=== PATIENT | male | born 1965 | race Caucasian/White ===

== ENCOUNTER 2021-01-21 12:57 | Emergency (ER) | payer BC ==
--- NOTE | 2021-01-21 13:52 | EDM.PDOC ---
ED HPI GENERAL MEDICAL PROBLEM - General Chief Complaint: Syncope Stated Complaint: abnormal labs, syncope Time Seen by Provider: 01/21/21 13:00 Source of Information: Reports: Patient History Limitations: Reports: No Limitations - History of Present Illness INITIAL COMMENTS - FREE TEXT/NARRATIVE: Patient comes to ER after being referred by clinic. He was seen at the clinic this morning after experiencing an episode of unresponsiveness last night. Has problems with chronic muscle cramping. Was having cramps in the thighs and told his that he felt woozy around 10pm last night. She had him sit in a chair. says patient turned flowers and became very diaphoretic. He then went limp in the chair and was unresponsive for about 15min. No obvious seizure activity per . called 911. She was instructed to take patient's pulse. Pulse was not fast per , but did did not measure actual rate. Was regular. During unresponsive episode no signs shortness of breath noted. No other obvious acute changes. When patient started to respond he did so slowly. EMS arrived and evaluated him. EMS crew felt his behavior suggested post-ictal pattern. Vital signs unremarkable per EMS. EKG performed and also unremarkable. Patient refused transfer to ED. This morning patient presented to clinic. Had labs/EKG. Head CT also as he had history of hitting top of head on cabinets in December. No LOC at that time but felt he gave himself mild concussion as he had some nausea afterwards. Labs unremarkable except for minimally elevated Troponin. He was referred to the ER due to Troponin elevation. Patient feels fine now other than feeling a bit tired/mild brain fog. Denies any chest pain throughout the night/today. Strong cardiac history in family with multiple members having AL/stents/CABG A - Related Data Allergies Allergy/AdvReac Type Severity Reaction Status Date / Time No Known Allergies Allergy Verified 01/21/21 13:35 Home Meds: Home Meds Methylphenidate HCl [Methylphenidate HCl ER] 20 mg PO BID 01/21/21 [History] Non-Formulary Medication [NF Drug] 1 tab PO DAILY 01/21/21 [History] Jackson-3/DHA/Epa/Fish Oil [Fish Oil 1,400 MG Softgel] 1 each PO BEDTIME 01/21/21 [History] Potassium Gluconate [Potassium] 3 tab PO DAILY 01/21/21 [History] Psyllium Husk [Metamucil] 1 tbsp PO TID 01/21/21 [History] buPROPion HCL [Bupropion HCl Sr] 150 mg PO DAILY 01/21/21 [History] Past Medical History Cardiovascular History: Reports: High Cholesterol Musculoskeletal History: Reports: Other (See Below) (muscle cramps) Psychiatric History: Reports: ADHD, Anxiety, Depression Endocrine/Metabolic History: Reports: Other (See Below) (Low Testosterone) Social & Family History - Family History Cardiac: Reports: Bypass, CAD, High Cholesterol, Hypertension, AL, Stent Oncologic: Reports: Other (See Below) (multiple members with various cancer diagnoses) ED ROS GENERAL - Review of Systems Review Of Systems: Comprehensive ROS is negative, except as noted in HPI. ED EXAM, GENERAL - Physical Exam Exam: See Below Exam Limited By: No Limitations General Appearance: Alert, WD/WN, No Apparent Distress Eye Exam: Bilateral Eye: EOMI, PERRL Ears: Normal External Exam, Normal Canal, Hearing Grossly Normal Nose: No: Nasal Deformity, Nasal Swelling, Nasal Drainage Throat/Mouth: Normal Lips, Normal Voice, No Airway Compromise Head: Atraumatic, Normocephalic Neck: Normal Inspection, Supple, Non-Tender, Full Range of Motion Respiratory/Chest: No Respiratory Distress, Lungs Clear, Normal Breath Sounds, No Accessory Muscle Use, Chest Non-Tender Cardiovascular: Regular Rate, Rhythm, No Edema, No Murmur GI/Abdominal: Normal Bowel Sounds, Soft, Non-Tender, No Distention (Male) Exam: Deferred Rectal (Males) Exam: Deferred Back Exam: No: CVA Tenderness (L), CVA Tenderness (R), Decreased Range of Motion, Muscle Spasm, Paraspinal Tenderness Extremities: Normal Inspection, Normal Range of Motion, Non-Tender, Normal Capillary Refill, Slow Capillary Refill Neurological: Alert, Oriented, CN II-XII Intact, Normal Cognition, Normal Gait, No Motor/Sensory Deficits Psychiatric: Normal Affect, Normal Mood Skin Exam: Warm, Dry, Intact, Normal Color Course - Vital Signs Last Recorded V/S: Last Vital Signs Temp 36.6 C 01/21/21 13:00 Pulse 68 01/21/21 15:50 Resp 15 01/21/21 15:50 BP 124/55 L 01/21/21 15:50 Pulse Ox 98 01/21/21 15:50 - Orders/Labs/Meds Labs: Laboratory Tests 01/21/21 01/21/21 01/21/21 Range/Units 10:55 10:55 14:30 D-Dimer, Quantitative < 100 (0-400) ng/mL Troponin I High Sens (<=76) ng/L NT-Pro-B Natriuret Pep 38 (0-125) pg/mL Specimen Type Urinvoid Urine Color Yellow Urine Appearance Clear Urine pH 5.5 (5.0-9.0) Ur Specific [place] 1.025 (1.005-1.030) Urine Protein Negative (NEGATIVE) mg/dL Urine Glucose (UA) Negative (NEGATIVE) mg/dL Urine Ketones Negative (NEGATIVE) mg/dL Urine Occult Blood Negative (NEGATIVE) Urine Nitrite Negative (NEGATIVE) Urine Bilirubin Negative (NEGATIVE) Urine Urobilinogen 0.2 (0.2-1.0) E.U./dL Ur Leukocyte Esterase Negative (NEGATIVE) Urine RBC 0-5 /HPF Urine WBC 0-5 /HPF Ur Epithelial Cells Rare /LPF Urine Bacteria Not seen (NONE TO FEW) /HPF Urine Mucus Many H (NEGATIVE) /LPF 01/21/21 Range/Units 15:10 D-Dimer, Quantitative (0-400) ng/mL Troponin I High Sens 78 H* (<=76) ng/L NT-Pro-B Natriuret Pep (0-125) pg/mL Specimen Type Urine Color Urine Appearance Urine pH (5.0-9.0) Ur Specific [place] (1.005-1.030) Urine Protein (NEGATIVE) mg/dL Urine Glucose (UA) (NEGATIVE) mg/dL Urine Ketones (NEGATIVE) mg/dL Urine Occult Blood (NEGATIVE) Urine Nitrite (NEGATIVE) Urine Bilirubin (NEGATIVE) Urine Urobilinogen (0.2-1.0) E.U./dL Ur Leukocyte Esterase (NEGATIVE) Urine RBC /HPF Urine WBC /HPF Ur Epithelial Cells /LPF Urine Bacteria (NONE TO FEW) /HPF Urine Mucus (NEGATIVE) /LPF - Re-Assessments/Exams Free Text/Narrative Re-Assessment/Exam: 01/21/21 14:18 Differential includes seizure vs arrhythmia/syncopal vs other cardiac episode. Troponin could be elevated due to ischemia from blockage or arrhythmia. Plan at this time is to observe in ER and obtain repeat EKG and Troponin at 1500. 01/21/21 16:17 Second Troponin 78. Upper normal is 76. Down from previous 86. Unremarkable stay. 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 Bradycardic with rate sometimes dipping to 50 while resting. Patient continues to feel well overall. Recommended overnight observation stay/telemetry but patient refuses. Will have him follow up at [facility] this week and look into arranging a cardiac stress test/EEG/consider Holter monitor. Patient agreeable with plan. Departure - Departure Time of Disposition: 16:21 Disposition: Home, Self-Care 01 Condition: Good Clinical Impression: Episode of unresponsiveness, Elevated troponin - Discharge Information *PRESCRIPTION DRUG MONITORING PROGRAM REVIEWED*: Not Applicable *COPY OF PRESCRIPTION DRUG MONITORING REPORT IN PATIENT SHANTAL: Not Applicable Referrals: Suzanna Rivas PA-C [Primary Care Provider] - Forms: ED Department Discharge Additional Instructions: Follow up tomorrow with Chantel at 1:30pm [facility]. Discuss arranging cardiac stress test, EEG, and possibly a Holter monitor (looks for arrhythmias). Follow up in ER if you have sudden acute significant problems/changes. Sepsis Event Note (ED) - Focused Exam Vital Signs: Vital Signs Temp Pulse Resp BP Pulse Ox 01/21/21 15:50 68 15 124/55 L 98 01/21/21 15:20 57 L 16 125/58 L 99 01/21/21 14:55 67 19 135/62 98 01/21/21 14:25 55 L 17 136/71 98 01/21/21 14:00 55 L 18 137/62 98 01/21/21 13:45 55 L 16 135/67 98 01/21/21 13:15 61 16 146/67 H 98 01/21/21 13:00 36.6 C 58 L 18 125/64 97
== END 2021-01-21 16:35 | disposition home or self-care (01) ==
LOC: LL.ED 12:57
DX: R40.4 Transient alteration of awareness (principal); R79.89 Other specified abnormal findings of blood chemistry; E78.00 Pure hypercholesterolemia, unspecified; Z79.899 Other long term (current) drug therapy
CPT/HCPCS: 36415; 81001; 83880; 84484; 85379; 99284; 99285-25

== ENCOUNTER 2021-01-21 21:26 | Observation (INO) | payer BC ==
[2021-01-21] MEDS ORDERED: Sodium Chloride 0.9% 10 ML Syringe FLUSH PRN (21:32)
--- NOTE | 2021-01-21 22:23 | EDM.PDOC ---
ED HPI GENERAL MEDICAL PROBLEM - General Chief Complaint: Chest Pain Stated Complaint: chest pain Time Seen by Provider: 01/21/21 21:54 Source of Information: Reports: Patient History Limitations: Reports: No Limitations - History of Present Illness INITIAL COMMENTS - FREE TEXT/NARRATIVE: Patient returns to ER after being seen earlier for an unresponsive episode and minimally elevated troponin. He declined observation admission at that time. Has changed his mind after having approximately 5-6 very brief sharp pains in epigastric and left chest area. Locations varied. No other accompanying symptoms. No triggers. Otherwise feels fine. See ED chart from this afternoon for specifics regarding last night's episode and today's labs. Other than a minimally elevated troponin his evaluation was unremarkable, including labs/EKG/head CT/chest xray. - Related Data Allergies Allergy/AdvReac Type Severity Reaction Status Date / Time No Known Allergies Allergy Verified 01/21/21 13:35 Home Meds: Home Meds Methylphenidate HCl [Methylphenidate HCl ER] 20 mg PO BID 01/21/21 [History] Non-Formulary Medication [NF Drug] 1 tab PO DAILY 01/21/21 [History] Grant-3/DHA/Epa/Fish Oil [Fish Oil 1,400 MG Softgel] 1 each PO BEDTIME 01/21/21 [History] Potassium Gluconate [Potassium] 3 tab PO DAILY 01/21/21 [History] Psyllium Husk [Metamucil] 1 tbsp PO TID 01/21/21 [History] buPROPion HCL [Bupropion HCl Sr] 150 mg PO DAILY 01/21/21 [History] Past Medical History Cardiovascular History: Reports: High Cholesterol Musculoskeletal History: Reports: Other (See Below) (muscle cramps) Psychiatric History: Reports: ADHD, Anxiety, Depression Endocrine/Metabolic History: Reports: Other (See Below) (Low Testosterone) Social & Family History - Family History Cardiac: Reports: Bypass, CAD, High Cholesterol, Hypertension, [place], Stent Oncologic: Reports: Other (See Below) (multiple members with various cancer diagnoses) - Tobacco Use Tobacco Use Status *Q: Never Tobacco User - Caffeine Use Caffeine Use: Reports: Coffee - Recreational Drug Use Recreational Drug Use: No ED ROS GENERAL - Review of Systems Review Of Systems: Comprehensive ROS is negative, except as noted in HPI. (ROS pertains to changes/symptoms noted after ED discharge 6 hours ago) ED EXAM, GENERAL - Physical Exam Exam: See Below Exam Limited By: No Limitations General Appearance: Alert, WD/WN, No Apparent Distress Eye Exam: Bilateral Eye: EOMI, PERRL Ears: Normal External Exam, Normal Canal, Hearing Grossly Normal Nose: Normal Inspection Throat/Mouth: Normal Inspection, Normal Lips, Normal Voice, No Airway Compromise Head: Atraumatic, Normocephalic Neck: Supple, Non-Tender, Full Range of Motion Respiratory/Chest: No Respiratory Distress, Lungs Clear, Normal Breath Sounds, No Accessory Muscle Use, Chest Non-Tender Cardiovascular: Normal Peripheral Pulses, No Murmur, Bradycardia GI/Abdominal: Soft, Non-Tender, No Distention (Male) Exam: Deferred Rectal (Males) Exam: Deferred Back Exam: Normal Inspection Extremities: Normal Inspection, Normal Range of Motion, Non-Tender, Normal Capillary Refill Neurological: Alert, Oriented, CN II-XII Intact, Normal Cognition, Normal Gait, No Motor/Sensory Deficits Psychiatric: Normal Affect, Normal Mood Skin Exam: Warm, Dry, Intact, Normal Color #1 Interpretation EKG Date: 01/21/21 Time: 21:16 Rhythm: Other (sinus bradycardia) Rate (Beats/Min): 59 [place]: Normal P-Wave: Present QRS: Normal ST-T: Normal QT: Normal Comparison: No Change Course - Vital Signs Last Recorded V/S: Last Vital Signs Temp 36.4 C 01/21/21 21:32 Pulse 59 L 01/21/21 22:00 Resp 18 01/21/21 22:00 BP 127/58 L 01/21/21 22:00 Pulse Ox 98 01/21/21 22:00 - Orders/Labs/Meds Orders: Active Orders 24 hr Category Date Time Status Peripheral IV Care [RC] . DIRECTED Care 01/21/21 21:32 Active Sodium Chloride 0.9% [Saline Flush] Med 01/21/21 21:32 Active 10 ml FLUSH ASDIRECTED PRN Peripheral IV Insertion Adult [OM.PC] Routine Oth 01/21/21 21:32 Ordered Medication Orders Sodium Chloride (Sodium Chloride 0.9% 10 Ml Syringe) 10 ml FLUSH ASDIRECTED PRN PRN Reason: Keep Vein Open Labs: Laboratory Tests 01/21/21 Range/Units 21:45 Troponin I High Sens 74 (<=76) ng/L Meds: Medications Generic Name Dose Route Start Last Admin Trade Name Ashly PRN Reason Stop Dose Admin Sodium Chloride 10 ml 01/21/21 21:32 Sodium Chloride 0.9% 10 Ml Syringe FLUSH ASDIRECTED PRN Keep Vein Open - Re-Assessments/Exams Free Text/Narrative Re-Assessment/Exam: 01/21/21 22:24 Troponin 74/normal range Other labs/xrays not repeated as they have already been performed during earlier workup at clinic and ED Departure - Departure Time of Disposition: 22:25 Disposition: Refer to Observation Condition: Good Clinical Impression: Episode of unresponsiveness, Elevated troponin, Chest pain, atypical - Discharge Information *PRESCRIPTION DRUG MONITORING PROGRAM REVIEWED*: Not Applicable *COPY OF PRESCRIPTION DRUG MONITORING REPORT IN PATIENT SHANTAL: Not Applicable Referrals: Suzanna Rivas PA-C [Primary Care Provider] - Sepsis Event Note (ED) - Evaluation Sepsis Screening Result: No Definite Risk - Focused Exam Vital Signs: Vital Signs Temp Pulse Resp BP Pulse Ox 01/21/21 22:00 59 L 18 127/58 L 98 01/21/21 21:45 62 18 136/75 97 01/21/21 21:32 36.4 C 65 20 134/64 96 - Problem List & Annotations (1) Episode of unresponsiveness SNOMED Code(s): 486170087 Code(s): R41.89 - OTH SYMPTOMS AND SIGNS W COGNITIVE FUNCTIONS AND AWARENESS Status: Acute Priority: High Current Visit: Yes Annotation/Comment:: Acute episode unresponsiveness lasting 15 min last night. No previous episodes. Was usual day for patient. He did report muscle cramps in thighs just before passing out. reported patient diaphoretic/flowers in color. Slow improvement after waking up. EMS felt patient appeared to be post-ictal. No seizure activity observed by . Uncertain as to etiology. Differential includes cardiac/arrhythmia/seizure. Will have patient on telemetry overnight. Is to hav e EEG/stress testing scheduled through PCP. (2) Elevated troponin SNOMED Code(s): 726641268, 897366284, 085689269 Code(s): R77.8 - OTHER SPECIFIED ABNORMALITIES OF PLASMA PROTEINS Status: Acute Priority: High Current Visit: Yes Annotation/Comment:: Minimally elevated troponin drawn at clinic,86. Improved to 78 when rechecked 4 hours later at 1500. Tonight it is 74, normal. No obvious ST changes/arrhythmias noted when EMS checked on patient last night, this morning at clinic, and on EKG this visit. Cannot exclude ischemic event associated with last night's unresponsive episode, such as an arrhythmia. Recheck troponin in AM. Telemetry during Observation stay. Patient recommended to have cardiac stress testing scheduled. (3) Chest pain, atypical SNOMED Code(s): 328422994 Code(s): R07.89 - OTHER CHEST PAIN Status: Acute Priority: Medium Current Visit: Yes Annotation/Comment:: 5-6 brief sharp episodes of pain this evening. Locations vary. Located in area of left chest and epigastrum. Patient anxious/may have anxiety component. See above for labs/EKG. Cannot exclude cardiac/GI etiology at this time. Telemetry. Recheck labs in AM. (4) ADHD SNOMED Code(s): 712943792 Code(s): F90.9 - ATTENTION-DEFICIT HYPERACTIVITY DISORDER, UNSPECIFIED TYPE Status: Chronic Priority: Low Current Visit: No Annotation/Comment:: Stable by history/continue home medication Qualifiers: Attention deficit-hyperactivity disorder type: unspecified Qualified Code(s): F90.9 - Attention-deficit hyperactivity disorder, unspecified type (5) Hyperlipidemia SNOMED Code(s): 63921549 Code(s): E78.5 - HYPERLIPIDEMIA, UNSPECIFIED Status: Chronic Priority: Low Current Visit: No Annotation/Comment:: Patient is trying a combo of weight loss, fiber, and fish oil and is following up with his primary provider. Qualifiers: Hyperlipidemia type: unspecified Qualified Code(s): E78.5 - Hyperlipidemia, unspecified (6) Depression with anxiety SNOMED Code(s): 451984148 Code(s): F41.8 - OTHER SPECIFIED ANXIETY DISORDERS Status: Chronic Priority: Low Current Visit: Yes Annotation/Comment:: Overall stable by history but is stressed concerning last night's episode of unresponsiveness. Continue Welbutrin. (7) Low testosterone in male SNOMED Code(s): 093181239, [id number] Code(s): R79.89 - OTHER SPECIFIED ABNORMAL FINDINGS OF BLOOD CHEMISTRY Status: Chronic Priority: Low Current Visit: No Annotation/Comment:: Under therapy/once a month injections - My Orders Last 24 Hours: My Active Orders 01/21/21 21:32 Peripheral IV Care [RC] . DIRECTED Sodium Chloride 0.9% [Saline Flush] 10 ml FLUSH ASDIRECTED PRN Peripheral IV Insertion Adult [OM.PC] Routine - Assessment/Plan Admission H&P: Please use this note as an admission H&P Last 24 Hours: My Active Orders 01/21/21 21:32 Peripheral IV Care [RC] . DIRECTED Sodium Chloride 0.9% [Saline Flush] 10 ml FLUSH ASDIRECTED PRN Peripheral IV Insertion Adult [OM.PC] Routine Assessment:: as above Plan: as above. Observe overnight/on telemetry. Recheck labs in AM. Stable and suitable for general supervision.
[2021-01-21] MEDS ORDERED: Ondansetron 4 MG Tab.DIS PO PRN (22:40)
[2021-01-21] MEDS ORDERED: Acetaminophen 325 MG Tab PO PRN (22:40)
[2021-01-21] MEDS ORDERED: LORazepam 1 MG Tab PO ONE ×2 (22:44)
[2021-01-21] MEDS ORDERED: Aspirin 81 MG Tab.Chew PO ONE (22:44)
[2021-01-21] MEDS ORDERED: Pantoprazole 40 MG Tab.CR PO ONE (22:45)
[2021-01-22 07:44] LABS: ANION GAP 7.8 meq/L (7-15); CHLORIDE,CL 106 mmol/L (98-107); SODIUM,NA 139 mmol/L (136-145)
[2021-01-22] MEDS ORDERED: buPROPion 150 MG Tab.ER PO SCH (08:00)
[2021-01-22] MEDS ORDERED: METHYLPHENIDATE HCL 20 MG PO SCH (08:00)
--- NOTE | 2021-01-22 12:59 | PCM.DCSUM1 ---
Discharge Summary - Hospital Course Brief History: Sivakumar Ribeiro is a 55 year old man who presented initially to the emergency department on 01/21/21 with complaints of a syncopal episode. He was evaluated in the ED with recommendation for admit to observation given mildly elevated troponin but he declined admit. After going home he developed 5- 6 brief episodes of chest pain which triggered him to return to the emergency department for re-evaluation and possible admit. During his hospital stay he was found to be pain free and hemodynamically stable. EKG completed showed no acute ischemic change. Troponin was normal at 74. plan of care included admit to observation and trend troponin. Pt was placed on telemetry with no irregularities noted. PMH significant for strong family hx of cardiovascular disease with patients father and multiple other paternal family memebers having MIs in their early 50s. pt is mildly hypertensive but on no medication and does have a history of mixed hyperlipidemia for which he has used dietary modifications as a management tool. Moorcroft risk score calculated leading to initiation of moderate intensity statin. prescription for atorvastatin 20mg nightly was given to the patient. he will need close follow up with cardiology for an outpatient stress test and will likely require a 30 day supply chain intern to evaluate possible cardiac origin of syncope. Met with patient and nursing at bedside. Patients present via telephone. provided education on management, medication, follow ups required and likely further investigation. pt and his voiced understanding and had no further questions or concerns at the time of discharge. Diagnosis: Stroke: No Modified George Scale: No Symptoms at All Modified George Scale Score: 0 - Discharge Data Discharge Date: 01/22/21 Discharge Disposition: Home, Self-Care 01 Condition: Good - Referral to Home Health Primary Care Physician: Suzanna Rivas PA-C - Discharge Diagnosis/Problem(s) (1) NSTEMI (non-ST elevated myocardial infarction) SNOMED Code(s): 51671846 ICD Code: I21.4 - NON-ST ELEVATION (NSTEMI) MYOCARDIAL INFARCTION Status: Suspected Priority: Medium Current Visit: Yes Onset Date: ~01/20/21 Problem Details: elevation of troponin post syncopal event. chest pain developed within 24 hours and self resolved. No acute ST changes noted on EKG. - Patient Instructions Diet: Heart Healthy Diet - Discharge Plan *PRESCRIPTION DRUG MONITORING PROGRAM REVIEWED*: Not Applicable *COPY OF PRESCRIPTION DRUG MONITORING REPORT IN PATIENT SHANTAL: Not Applicable Prescriptions/Med Rec: atorvaSTATin [Lipitor] 20 mg PO BEDTIME #30 tab Home Medications: Home Meds Methylphenidate HCl [Methylphenidate HCl ER (Cd)] 20 mg PO BID 01/21/21 [History] Non-Formulary Medication [NF Drug] 1 tab PO DAILY 01/21/21 [History] Dobson-3/DHA/Epa/Fish Oil [Fish Oil 1,400 MG Softgel] 1 each PO BEDTIME 01/21/21 [History] Potassium Gluconate [Potassium] 3 tab PO DAILY 01/21/21 [History] Psyllium Husk [Metamucil] 1 tbsp PO TID 01/21/21 [History] buPROPion HCL [Bupropion HCl Sr] 150 mg PO DAILY 01/21/21 [History] Methylphenidate HCl [Methylphenidate HCl ER (Cd)] 20 mg PO BID 01/22/21 [Rx] atorvaSTATin [Lipitor] 20 mg PO BEDTIME #30 tab 01/22/21 [Rx] buPROPion [buPROPion XL] 150 mg PO DAILY tab.er 01/22/21 [Rx] Oxygen Therapy Mode: Room Air Referrals: Suzanna Rivas PA-C [Primary Care Provider] - cardiology, [facility] [Other] (1st available. will need 30 day event monitor and stress test) - Discharge Summary/Plan Comment DC Time >30 min.: Yes Total # of Minutes for Discharge Time: 40 - Patient Data Vitals - Most Recent: Last Vital Signs Temp 97.2 F 01/22/21 12:00 Pulse 72 01/22/21 12:00 Resp 18 01/22/21 12:00 BP 148/69 H 01/22/21 12:00 Pulse Ox 97 01/22/21 12:00 Weight - Most Recent: 202 lb 4.8 oz I&O - Last 24 hours: Intake & Output 01/21/21 01/22/21 01/22/21 22:59 06:59 14:59 Intake Total 440 Balance 440 Lab Results - Last 24 hrs: Laboratory Results - last 24 hr 01/21/21 01/22/21 01/22/21 Range/Units 21:45 07:07 07:07 WBC 3.8 L (4.0-10.2) K/uL RBC 4.08 L (4.33-5.41) M/uL Hgb 13.5 (13.1-16.8) g/dL Hct 39.9 (39.0-49.0) % MCV 97.8 (84.0-98.0) fL MCH 33.1 (28.2-33.3) pg MCHC 33.8 (31.7-36.0) g/dL RDW 12.1 (11.2-14.1) % Plt Count 243 (150-350) K/uL Neut % (Auto) 50.8 (45.0-80.0) % Lymph % (Auto) 25.9 (10.0-50.0) % [place] % (Auto) 18.3 H (2.0-14.0) % Eos % (Auto) 4.2 (0.0-5.0) % Baso % (Auto) 0.8 (0.0-2.0) % Neut # (Auto) 1.92 (1.40-7.00) K/uL Lymph # (Auto) 0.98 (0.50-3.50) K/uL [place] # (Auto) 0.69 (0.00-1.00) K/uL Eos # (Auto) 0.16 (0.00-0.50) K/uL Baso # (Auto) 0.03 (0.00-0.20) K/uL Sodium 139 (136-145) mmol/L Potassium 4.4 (3.5-5.1) mmol/L Chloride 106 (98-107) mmol/L Carbon Dioxide 25.2 (21.0-32.0) mmol/L Anion Gap 7.8 (7-15) meq/L BUN 19 H (7-18) mg/dL Creatinine 0.95 (0.51-1.17) mg/dL Est Cr Clr Drug Dosing 101.63 mL/min Estimated GFR (MDRD) > 60 mL/min Glucose 100 H (70-99) mg/dL Calcium 8.4 L (8.5-10.1) mg/dL Total Bilirubin 0.4 (0.2-1.0) mg/dL AST 25 (15-37) U/L ALT 31 (12-78) U/L Alkaline Phosphatase 69 (46-116) IU/L Troponin I High Sens 74 70 (<=76) ng/L Total Protein 6.8 (6.4-8.2) g/dL Albumin 3.6 (3.4-5.0) g/dL Triglycerides (30-150) mg/dL Cholesterol (100-200) mg/dL LDL Cholesterol, Calc (0-100) mg/dL HDL Cholesterol (40-60) mg/dL 01/22/21 Range/Units 07:07 WBC (4.0-10.2) K/uL RBC (4.33-5.41) M/uL Hgb (13.1-16.8) g/dL Hct (39.0-49.0) % MCV (84.0-98.0) fL MCH (28.2-33.3) pg MCHC (31.7-36.0) g/dL RDW (11.2-14.1) % Plt Count (150-350) K/uL Neut % (Auto) (45.0-80.0) % Lymph % (Auto) (10.0-50.0) % [place] % (Auto) (2.0-14.0) % Eos % (Auto) (0.0-5.0) % Baso % (Auto) (0.0-2.0) % Neut # (Auto) (1.40-7.00) K/uL Lymph # (Auto) (0.50-3.50) K/uL [place] # (Auto) (0.00-1.00) K/uL Eos # (Auto) (0.00-0.50) K/uL Baso # (Auto) (0.00-0.20) K/uL Sodium (136-145) mmol/L Potassium (3.5-5.1) mmol/L Chloride (98-107) mmol/L Carbon Dioxide (21.0-32.0) mmol/L Anion Gap (7-15) meq/L BUN (7-18) mg/dL Creatinine (0.51-1.17) mg/dL Est Cr Clr Drug Dosing mL/min Estimated GFR (MDRD) mL/min Glucose (70-99) mg/dL Calcium (8.5-10.1) mg/dL Total Bilirubin (0.2-1.0) mg/dL AST (15-37) U/L ALT (12-78) U/L Alkaline Phosphatase (46-116) IU/L Troponin I High Sens (<=76) ng/L Total Protein (6.4-8.2) g/dL Albumin (3.4-5.0) g/dL Triglycerides 76 (30-150) mg/dL Cholesterol 173 (100-200) mg/dL LDL Cholesterol, Calc 121 H (0-100) mg/dL HDL Cholesterol 37 L (40-60) mg/dL Med Orders - Current: Current Medications Acetaminophen (Acetaminophen 325 Mg Tab) 650 mg PO Q4H PRN PRN Reason: Pain (Mild 1-3)/fever Bupropion HCl (Bupropion 150 Mg Tab.Er) 150 mg PO DAILY [facility] Last Admin: 01/22/21 07:20 Dose: 150 mg Documented by: Non-Formulary Medication (Methylphenidate Hcl [Methylphenidate Hcl Er (Cd)]) 20 mg PO BID [facility] Ondansetron HCl (Ondansetron 4 Mg Tab.Dis) 4 mg PO Q6H PRN PRN Reason: Nausea/Vomiting Sodium Chloride (Sodium Chloride 0.9% 10 Ml Syringe) 10 ml FLUSH ASDIRECTED PRN PRN Reason: Keep Vein Open Discontinued Medications Aspirin (Aspirin 81 Mg Tab.Chew) 324 mg PO ONETIME ONE Stop: 01/21/21 22:45 Last Admin: 01/21/21 23:14 Dose: 324 mg Documented by: Lorazepam (Lorazepam 1 Mg Tab) 1 mg PO ONETIME ONE Stop: 01/21/21 22:45 Last Admin: 01/21/21 23:05 Dose: Not Given Documented by: Lorazepam (Lorazepam 1 Mg Tab) 0.5 mg PO ONETIME ONE Stop: 01/21/21 22:45 Last Admin: 01/21/21 23:27 Dose: Not Given Documented by: Pantoprazole Sodium (Pantoprazole 40 Mg Tab.Cr) 40 mg PO ONETIME ONE Stop: 01/21/21 22:46 Last Admin: 01/21/21 23:15 Dose: 40 mg Documented by:
== END 2021-01-22 13:30 | disposition home or self-care (01) ==
LOC: LL.ED 21:26 → LL.MS 22:12
PROVIDERS: ADMIT Emergency Medicine; ATTEND Emergency Medicine
DX: R55 Syncope and collapse (principal); R77.8 Other specified abnormalities of plasma proteins; R07.9 Chest pain, unspecified; R10.13 Epigastric pain; E78.00 Pure hypercholesterolemia, unspecified; F32.9 Major depressive disorder, single episode, unspecified; R41.89 Other symptoms and signs involving cognitive functions and awareness; F90.9 Attention-deficit hyperactivity disorder, unspecified type; F41.8 Other specified anxiety disorders; Z79.899 Other long term (current) drug therapy
CPT/HCPCS: 36415; 80053; 80061; 84484; 85025; 93005; 93010; 99217; 99219; 99285-25; A9270-GY; G0378